=== PATIENT | male | born 1955 | race Caucasian/White ===

== ENCOUNTER 2022-11-23 10:53 | Outpatient (RCR) | payer MEDICARE, BC, SELFPAY | END 2023-03-23 23:59 | disposition home or self-care (01) | PROVIDERS: PCP Family Medicine; Visit Provider Orthopaedic Surgery | DX: M16.12 Unilateral primary osteoarthritis, left hip (principal); M25.552 Pain in left hip; M62.81 Muscle weakness (generalized); R26.9 Unspecified abnormalities of gait and mobility; Z51.89 Encounter for other specified aftercare | CPT/HCPCS: 97110; 97161; 97535 ==

== ENCOUNTER 2022-12-09 09:47 | Outpatient (CLI) | payer MEDICARE, BC, SELFPAY | END 2022-12-09 09:48 | disposition home or self-care (01) | PROVIDERS: PCP Family Medicine; Visit Provider Orthopaedic Surgery | DX: Z01.818 Encounter for other preprocedural examination (principal) | CPT/HCPCS: 36415; 86850; 86900; 86901 ==

== ENCOUNTER 2022-12-11 10:23 | Day surgery (SDC) | payer MEDICARE, BC, SELFPAY ==
[2022-12-11] VITALS (27 sets, daily range): BP systolic 117–174; BP diastolic 69–124; PULSE 66–123; RESP 12–22; TEMP 36.3–37.1; O2SAT 88–100; BMI 26.1
[2022-12-11] MEDS: ACETAMINOPHEN 500 MG TABLET 1000 MG PO ×3 (11:00→23:50)
[2022-12-11] MEDS: CELECOXIB 200 MG CAPSULE PO (11:00)
[2022-12-11] MEDS: OXYCODONE (CR) 10 MG TAB.ER.12H PO (11:00)
[2022-12-11] MEDS: LACTATED RINGERS 1000 ML 1,000 ML 100 ML IV (11:20)
[2022-12-11] MEDS: SODIUM CHLORIDE 0.9 % (FLUSH) 10 ML SYRINGE IVF (11:20)
[2022-12-11] MEDS: fentaNYL 100 MCG/2 ML inj IVP (12:00)
[2022-12-11] MEDS: MIDAZOLAM HCL 1 MG/ML inj IVP (12:00)
--- NOTE | 2022-12-11 12:14 | W.PM.NB ---
Nerve Block Nerve Block Time Seen by Provider: 12:08 Date Seen: 12/11/22 Type of block requested by surgeon for post-operative analgesia: ROULA/LFCN Side: left Time out performed: Yes Verification of patient name: Yes Verification of date of : Yes Site marking: site marked Name of person performing procedure: lonnie Continuous monitoring Was continuous monitoring of O2 sat, B/P, ekg monitor, recorded every 15 minutes?: Yes Procedure Checklist: sterile prep, needles and gloves Ultrasound guided. Images saved: Yes Medications given in 5ml increments after negative aspiration: Ropivicaine %: 0.5 mL: 20 Needle gauge: 20 Decadron (mg): 10 Precedex (mcg): 50 Patient tolerated procedure well: Yes Block Charges Block Charge (with Pro Fee): Other Periph Nerve Block Use of Ultrasound Machine for Block: Yes- US Guidance/pain block
--- NOTE | 2022-12-11 12:24 | SUR.PREOP ---
TIME?OUT:?1200 PT/RN/MDA?VERIFICATION?OF?SURGICAL?SITE,?PROCEDURE,?AND?CONSENT OBTAINED?PRIOR?TO?INVASIVE?PROCEDURE.
--- NOTE | 2022-12-11 12:30 | CRLHL7_ITS ---
For Patients: As a result of the Century Cures Act, medical imaging exams and procedure reports are released immediately into your electronic medical record. You may view this report before your referring provider. If you have questions, please contact your health care provider. INDICATION: Follow up left hip arthroplasty. TECHNIQUE: Two portable intraoperative images of the left hip. Fluoroscopic guidance utilized. FINDINGS: 53 seconds fluoroscopy time utilized intraoperatively. Left hip arthroplasty. The components appear to be adequately aligned. IMPRESSION: 53 seconds fluoroscopy time utilized intraoperatively. Dictated by Andrew Queen MD @ 12/11/2022 4:55:32 PM (Electronically Signed)
[2022-12-11] MEDS: CEFAZOLIN 2 GM INJ IVP (13:12)
--- NOTE | 2022-12-11 14:33 | CRLHL7_ITS ---
For Patients: As a result of the Cures Act, medical imaging exams and procedure reports are released immediately into your electronic medical record. You may view this report before your referring provider. If you have questions, please contact your health care provider. INDICATION: Follow up left hip arthroplasty. TECHNIQUE: AP pelvis and single cross table lateral view of the left hip performed portably and postoperatively. FINDINGS: Left hip arthroplasty. The components are adequately aligned and well seated. Air within the soft tissues related to the surgery. IMPRESSION: Adequate alignment status post left hip arthroplasty. Dictated by Andrew Queen MD @ 12/11/2022 4:56:21 PM (Electronically Signed)
--- NOTE | 2022-12-11 14:34 | PM.ORPRC ---
Procedure Note Date of procedure: 12/11/22 Procedure: PREOPERATIVE DIAGNOSIS: Left hip osteoarthritis POSTOPERATIVE DIAGNOSIS: Left hip osteoarthritis NAME OF OPERATION: Left total hip arthroplasty SURGEON: Miller Becker MD DENTAL ASSISTANT: Renee Mariee PA-C, CATHY Rhodes IMPLANTS: 1. [employer] [place] # 54 sector ingrowth cup 2. 36 x 54 +4 neutral polyethylene 3. Actis # 5 standard collared ingrowth stem 4. 36 + 1.5 ceramic femoral head ANESTHESIA: General ESTIMATED BLOOD LOSS: 700 cc COMPLICATIONS: None SPECIMENS: None DRAINS: None PREOPERATIVE ANTIBIOTICS: Ancef 2 grams INDICATIONS: The patient is a 67-year-old with a longstanding history of severe, unrelenting left hip pain secondary to end-stage left hip osteoarthritis. Despite appropriate nonoperative management, including activity modification, use of an assist device, anti-inflammatories, [id number] pain medication, physical therapy and injections, they continue to have pain and disability. Operative intervention was offered. The risks, benefits and expected outcomes were discussed in detail. These included but were not limited to: Infection, bleeding, injury to blood vessel or nerve, venous thromboembolism. All questions were answered to their satisfaction. Use of an assistant front office manager was necessary throughout the case for patient positioning and safety, soft tissue retraction and closure. PROCEDURE: The patient was placed supine on the [place] table. General anesthesia was administered. The assistant front office manager made sure the patient was properly positioned. The left hip was prepped and draped in the usual sterile fashion. The image intensifier was brought in for a perfect AP pelvis and a perfect double tear drop AP view of each hip which were used for intraoperative templating with our fluoroscopic guide. An oblique incision was made 3 cm distal and 3 cm lateral to the anterior superior iliac spine. The assistant front office manager retracted the soft tissues to protect them. Subcutaneous dissection was taken with electrocautery to the superficial fascia. The fascia was divided in line with the incision. Blunt dissection was carried medially to the tensor fascia naomy and sartorius interval. Deep dissection was carried with electrocautery. The circumflex vessels were cauterized and divided. The capsule was exposed and then divided in a T-fashion, tagged with #1 Ethibond sutures. Retractors were placed in the joint, held by the assistant front office manager. The corkscrew was placed in the femoral head. The neck cut was made in the subcapital region. We made a second neck cut more distal. The napkin ring of bone was removed. The femoral head was removed intact. Acetabular retractors were placed, held by the assistant front office manager. The labrum was sharply debrided. The capsule was released. The 43 mm reamer was used to the true medial wall. We then enlarged in 2 mm increments using the image intensifier for our reamer placement. We impacted the cup which had excellent purchase. We placed the polyethylene. Attention was then turned to the proximal femur. The limb was placed in 140 degrees of external rotation, maximum extension and adduction. A significant amount of time was spent releasing the capsule to allow us to deliver the femur into the wound and complete the femoral side safely. Retractors were held by the assistant front office manager throughout the femoral preparation. The sample box maker and canal finder were used. Broaches were used to a stable size. The calcar reamer was used. Trial components were placed. The hip was reduced and was found to be stable with appropriate soft tissue tension. Length and offset had been nicely restored using the image intensifier and our fluoroscopic guide. Trial components were removed. The stem was impacted. We placed the femoral head. Again, the hip was reduced and was found to be stable with appropriate soft tissue tension. Length and offset had been nicely restored. The assistant front office manager did a three minute dilute Betadine solution soak. The assistant front office manager irrigated the wound with 3 liters of normal saline via pulse lavage. The assistant front office manager repaired the anterior capsule with a #1 Vicryl and our previously placed Ethibond sutures. The assistant front office manager closed the fascia over the tensor fascia naomy with a #1 PDO Stratafix, subcutaneous tissues with 2-0 Vicryl, skin with a running 3-0 Stratafix and glue. A dry dressing was applied by the assistant front office manager. Sponge and needle counts were correct x 2. The patient tolerated the procedure well; there were no apparent complications. They were awakened and extubated in the operating room, sent to the Post-Anesthesia Care Unit in satisfactory condition. PLAN: 1. The patient will be mobilized with physical therapy, weight-bearing as tolerates 2. Xarelto x 5 days then aspirin x 30 days will be used for DVT prophylaxis 3. The patient will be discharged once medically appropriate
--- NOTE | 2022-12-11 15:22 | W.ANESCHARGE ---
Anesthesia Charges Start Date/Time Anesthesia Start Date: 12/11/22 Anesthesia Start Time: 12:50 Stop Date/Time Anesthesia Stop Date: 12/11/22 Anesthesia Stop Time: 15:25
[2022-12-11] MEDS: fentaNYL 100 MCG/2 ML inj 50 MCG IVP (15:51)
[2022-12-11] MEDS: LACTATED RINGERS 1000 ML 1,000 ML 75 ML IV (16:15)
--- NOTE | 2022-12-11 16:16 | PC.NURSE ---
DISCUSSED ELEVATED BP WITH RUBEN HOLLAND AND HE AUTHORIZED PATIENT TO BE DISCHARGED. PATIENT DID NOT TAKE THIS AM BLOOD PRESSURE MEDICATIONS. PATIENT MEETS BLANE SCORE TO BE DISCHARGED. REPORTED TO MED SURG NURSE
[2022-12-11] MEDS: HYDROmorphone 0.5 mg/0.5 ml inj IVP (16:57)
[2022-12-11] MEDS: OXYCODONE 5 MG TABLET PO (18:11)
[2022-12-11] MEDS: 0.9 % SODIUM CHLORIDE 500 ML IV (19:42)
[2022-12-11] MEDS: lisinopriL 10 MG TABLET PO (21:04)
[2022-12-11] MEDS: buPROPion HCL SR 150 MG TAB PO (21:04)
[2022-12-11] MEDS: SENNOSIDES 1 TAB TABLET 2 TAB PO (21:04)
[2022-12-11] MEDS: CEFAZOLIN 2 GM in 0.9 % SODIUM CHLORIDE Mini-bag 100 ML IVPB (21:05)
[2022-12-11] MEDS: 0.9 % SODIUM CHLORIDE 500 ML 500 ML IV (22:00)
--- NOTE | 2022-12-11 23:15 | P.IMCN_ITS ---
Date of Consult Patient: [place] Patient Consult date: 12/11/22 Requesting Physician: Orthopedics Primary Care Provider: Dave Devi MD Consult Narrative Reason for consult: Postop care HTN, COPD, HLD Narrative: Dashawn Knapp is a 67 year old man who successfully underwent a left total hip arthroplasty today. Estimated blood loss 700 mL. Postop sinus tachycardia and decreased urine output. Responded well to IV fluid boluses. Review of Systems Status of ROS: Reports: 10 or more systems reviewed and unremarkable except as noted in History and below Narrative: Has not taken his antihypertensive medication for 2 days. Denies angina, anginal equivalent, syncope, near syncope, nausea, vomiting, diaphoresis, dyspnea at rest, paroxysmal nocturnal dyspnea, orthopnea. Acknowledges baseline dyspnea with exertion. Uses his rescue inhaler periodically for dyspnea or cough. No recent fever, rigors, diaphoresis. No recent illness. No recent travel. No recent trauma. No recent injury. Bowel and bladder function are satisfactory. Denies focal motor neurologic changes or concerns. Has been sleeping in a recliner chair for several months due to pain in hip that is worsened with laying supine. [facility] Medical History Hyperlipidemia ?E78.5 - Hyperlipidemia, unspecified (ICD-10) Anxiety and depression ?F41.9 - Anxiety disorder, unspecified (ICD-10) ?F32.A - Depression, unspecified (ICD-10) History of nephrolithotomy with removal of calculi ?Z98.890 - Other specified postprocedural states (ICD-10) ?Z87.442 - Personal history of urinary calculi (ICD-10) Tobacco dependence ?F17.200 - Nicotine dependence, unspecified, uncomplicated (ICD-10) Asthma with COPD ?J44.9 - Chronic obstructive pulmonary disease, unspecified (ICD-10) Closed right ankle fracture ?S82.891A - Other fracture of right lower leg, initial encounter for closed fracture (ICD-10) Closed left ankle fracture ?S82.892A - Other fracture of left lower leg, initial encounter for closed fracture (ICD-10) Kidney stones ?N20.0 - Calculus of kidney (ICD-10) High blood pressure ?I10 - Essential (primary) hypertension (ICD-10) Surgical History (Updated 12/11/22 @ 23:15 by Rafael Alegria MD) History of ankle surgery ?Z98.890 - Other specified postprocedural states (ICD-10) History of cystoscopy ?Z98.890 - Other specified postprocedural states (ICD-10) Status post colonoscopy with polypectomy ?Z98.890 - Other specified postprocedural states (ICD-10) Family History Father Aortic aneurysm Mother Stroke Brother Leukemia Social History Highest level of school completed/degree received: Bachelor's degree Smoking Status: Former smoker What tobacco products do you use: cigarettes Smoking packs per day: 1.5 Smoking cigarettes per day: 30.0 Years smoked: 35 Smoking pack-years: 52.50 Smoking quit date/years: <= 15 years ago Do you use any of these nicotine containing products: None Second hand tobacco smoke exposure: No How often do you have a drink containing alcohol: 2-4 times a month Alcohol type: wine How many standard drinks containing alcohol do you have on a typical day: 1 or 2 How often do you have six or more drinks on one occasion: Never AUDIT-C Alcohol total score: 2 Non-prescribed substance use: denies use Caffeine: Yes (coffee, 3-4 cups/day) service: No Meds Home Medications and Allergies Home Medications Medication Instructions Recorded Confirmed Type albuterol sulfate 90 mcg/actuation 2 puff inhalation QID PRN dyspnea 11/05/22 12/11/22 History aerosol inhaler atorvastatin 10 mg tablet 10 mg PO DAILY 11/05/22 12/11/22 History bupropion HCl 150 mg tablet,12 hr 150 mg PO BID 11/05/22 12/11/22 History sustained-release lisinopril 20 mg tablet 20 mg PO DAILY 11/05/22 12/11/22 History cyclobenzaprine 10 mg tablet 10 mg PO Q8H PRN 12/07/22 12/11/22 History fluticasone propionate 50 1 spray intranasal BID 12/07/22 12/11/22 History mcg/actuation nasal spray,suspension (24 Hour Allergy Relief) meloxicam 15 mg tablet 15 mg PO DAILY 12/07/22 12/11/22 History multivitamin (Daily Multi-Vitamin 1 tab PO DAILY 12/07/22 12/11/22 History tablet) Allergies Allergy/AdvReac Type Severity Reaction Status Date / Time hayfever Allergy Uncoded 11/21/22 13:40 Exam Narrative: Exam Narrative: Sitting comfortably in recliner chair at side of bed. Vision and hearing are grossly normal. Alert, oriented to self, place, time, situation. Friendly, cooperative, articulate. Mood and affect are congruent. Neck is supple. Midline trachea. No JVD or hepatojugular reflux. No carotid bruits. Lungs are clear to auscultation, without wheezing, rhonchi, or rales. Heart tones with regular rhythm, normal S1, S2. No murmur, gallop, or rub. Abdomen with active bowel sounds, soft, nontender. Extremities without edema. Moves all 4 extremities. Const: Vital Signs, click to edit/add: Vital Signs - 24 hr 12/11/22 11:31 12/11/22 12:00 12/11/22 12:05 Temperature 98.5 F Pulse Rate 88 75 66 Pulse Rate [Right Pulse Oximeter] Respiratory Rate 16 16 16 Blood Pressure 137/89 159/124 H 141/108 H Blood Pressure [Le ft Arm] Pulse Oximetry 97 97 93 Oxygen Delivery Me thod Room Air Nasal Cannula Nasal Cannula Oxygen Flow Rate 2 2 12/11/22 12:10 12/11/22 12:20 12/11/22 12:30 Temperature Pulse Rate 70 81 73 Pulse Rate [Right Pulse Oximeter] Respiratory Rate 16 16 16 Blood Pressure 128/101 H 120/83 124/77 Blood Pressure [Le ft Arm] Pulse Oximetry 95 96 96 Oxygen Delivery Me thod Nasal Cannula Nasal Cannula Nasal Cannula Oxygen Flow Rate 2 2 2 12/11/22 12:40 12/11/22 15:21 12/11/22 15:25 Temperature 98 F Pulse Rate 71 86 88 Pulse Rate [Right Pulse Oximeter] Respiratory Rate 16 12 12 Blood Pressure 117/83 130/117 H 129/115 H Blood Pressure [Le ft Arm] Pulse Oximetry 96 97 99 Oxygen Delivery Me thod Nasal Cannula OxyMask Oxygen Flow Rate 2 6 12/11/22 15:30 12/11/22 15:35 12/11/22 15:40 Temperature Pulse Rate 89 101 H 101 H Pulse Rate [Right Pulse Oximeter] Respiratory Rate 12 12 12 Blood Pressure 152/118 H 174/107 H 165/97 H Blood Pressure [Le ft Arm] Pulse Oximetry 100 100 95 Oxygen Delivery Me thod Room Air Oxygen Flow Rate 12/11/22 15:45 12/11/22 15:50 12/11/22 15:55 Temperature 97.6 F Pulse Rate 102 H 105 H 103 H Pulse Rate [Right Pulse Oximeter] Respiratory Rate 16 12 16 Blood Pressure 152/90 H 152/112 H 142/114 H Blood Pressure [Le ft Arm] Pulse Oximetry 94 93 93 Oxygen Delivery Me thod Nasal Cannula Nasal Cannula Oxygen Flow Rate 2 2 12/11/22 16:00 12/11/22 16:15 12/11/22 16:30 Temperature 98.8 F 97.4 F L Pulse Rate 90 Pulse Rate [Right Pulse Oximeter] 97 97 Respiratory Rate 16 15 15 Blood Pressure 164/119 H Blood Pressure [Le ft Arm] 164/101 H 135/106 H Pulse Oximetry 95 91 91 Oxygen Delivery Me thod Room Air Room Air Room Air Oxygen Flow Rate 12/11/22 16:48 Temperature Pulse Rate 97 Pulse Rate [Right Pulse Oximeter] Respiratory Rate 15 Blood Pressure Blood Pressure [Le ft Arm] 172/97 H Pulse Oximetry Oxygen Delivery Me thod Room Air Oxygen Flow Rate Documenting provider has reviewed patient's vital signs: yes Assessment and Plan Assessment and plan (1) Osteoarthritis of left hip: Status: Acute (2) Status post total hip replacement, left: Status: Acute (3) Anxiety and depression: Status: Acute (4) High blood pressure: Status: Acute (5) Asthma with COPD: Status: Acute (6) Hyperlipidemia: Status: Acute Plan 1. Reviewed impression with patient. Answered his questions. 2. Agree with perioperative IV antibiotic prophylaxis. 3. Agree with postoperative venous thromboembolism prophylaxis. 4. Continue with supportive medications
--- NOTE | 2022-12-11 23:48 | PC.NURSE ---
Nursing Care Hours: [id number] Pt this shift arrived from PACU with 4/10 pain, alert and oriented but fatigued. Reported to be HTN and HR in 90's. Over 6 hour post op VS, HR steadily increased and remains around 105-125 bpm. Pain controlled per eMAR, pt stating I haven't felt this good in a long time. SpO2 dips to 88% while pt is rested or asleep. 0.5L O2 given at rest. No nausea. Up to chair for meal. Attempt to void x1 with no output. Pt mouth remains dry, and HR tachy. 500 ml bolus given and symptoms unchanged. Verbal order for another 1 time 500 ml bolus, still no change in symptoms and no void. Abdomen distended but non tender. BS active. Bandage CDI, bilat pedal pulses present.
[2022-12-12 03:00] VITALS: BP 117/78; PULSE 107; RESP 18; TEMP 36.8; O2SAT 96
[2022-12-12] MEDS: CEFAZOLIN 2 GM in 0.9 % SODIUM CHLORIDE Mini-bag 100 ML IVPB (05:07)
[2022-12-12] MEDS: ACETAMINOPHEN 500 MG TABLET 1000 MG PO (05:49)
[2022-12-12 06:00] VITALS: BP 117/78; BP 124/80; BP 128/90
[2022-12-12 06:45] LABS: Basophils Percent Auto 0.1 % (0.0-3.0); Hematocrit 31.2 % (37.0-53.0); Hemoglobin* 10.6 gm/dL (13.5-17.5); Immature Granulocytes Pct Auto 0.2 %; Lymphocytes Percent Auto 4.2 % (20-44); Mean Corpuscular HGB Conc 34 gm/dL (32-36); Mean Corpuscular Hemoglobin 34 pg (26-34); Mean Corpuscular Volume 100 fL (80-100); Neutrophils Percent Auto 85.5 % (42.0-72.0); Platelet Count* 282 K/uL (140-440); RDW Coefficient of Variation % 11.8 % (11.5-15.5); Red Blood Count 3.11 m/uL (4.30-5.90); White Blood Count* 13.47 K/uL (4.50-11.00)
--- NOTE | 2022-12-12 06:57 | PC.NURSE ---
Alert and oriented x 4. Left hip dressing clean, dry and intact. CMS to left lower extremity intact. Patient transfers with stand by assist, ambulates with walker and gait belt. Up x 3 to bathroom, voiding well. IV saline locked. Bowel sounds active x 4 quadrants. Lung sounds clear, denies shortness of breath or cough.
[2022-12-12 07:00] VITALS: BP 127/74; PULSE 116; RESP 20; TEMP 37.2; O2SAT 97
[2022-12-12 07:09] LABS: Slide Review Reflex No
[2022-12-12 07:13] LABS: Potassium* 4.3 mmol/L (3.6-5.1); Sodium* 138 mmol/L (135-149)
[2022-12-12 07:16] LABS: Blood Urea Nitrogen* 23 mg/dL (7-30); Creatinine* 1.1 mg/dL (0.5-1.5); Est. Creatinine Clearance* 68.21; Estimated Glomerular Filt Rate 74 ml/min
[2022-12-12] MEDS: ATORVASTATIN 10 MG TABLET PO (08:21)
[2022-12-12] MEDS: RIVAROXABAN 10 MG TABLET PO (08:21)
[2022-12-12] MEDS: lisinopriL 20 MG TABLET PO (08:21)
[2022-12-12] MEDS: buPROPion HCL SR 150 MG TAB PO (08:21)
[2022-12-12] MEDS: OXYCODONE 5 MG TABLET PO (08:22)
[2022-12-12] MEDS: SENNOSIDES 1 TAB TABLET 2 TAB PO (08:22)
--- NOTE | 2022-12-12 08:24 | PM.ORPN ---
Subjective Subjective Time Seen by Provider: 07:30 Date Seen: 12/12/22 Principal diagnosis: Status post left hip replacement Interval history: Dashawn is comfortable this morning. He slept well. He has had tachycardia. This has been evaluated by hospitalist. He has also had Postop urinary retention that has resolved. he plans to discharge to home today. Ortho Exam Narrative Exam Narrative: Alert and oriented x3. Patient is in no acute distress. Converses without labored breathing. Hearing is grossly intact. Ambulates with a Walker. Examination of left lower extremity shows the dressing is intact. No erythema or warmth or sign of infection. Mild edema. Bilateral calves are soft and nontender. CMS is intact left lower extremity. Good quad strength 5/5. Const Vital Signs, click to edit/add: Vital Signs - 24 hr 12/11/22 11:31 12/11/22 12:00 12/11/22 12:05 Temperature 98.5 F Pulse Rate 88 75 66 Pulse Rate [Right Pulse Oximeter] Respiratory Rate 16 16 16 Blood Pressure 137/89 159/124 H 141/108 H Blood Pressure [Left Arm] Blood Pressure [orthostatic lying Right Arm] Blood Pressure [orthostatic sitting Right Arm] Blood Pressure [orthostatic standing Right Arm] Pulse Oximetry 97 97 93 Oxygen Delivery Method Room Air Nasal Cannula Nasal Cannula Oxygen Flow Rate 2 2 12/11/22 12:10 12/11/22 12:20 12/11/22 12:30 Temperature Pulse Rate 70 81 73 Pulse Rate [Right Pulse Oximeter] Respiratory Rate 16 16 16 Blood Pressure 128/101 H 120/83 124/77 Blood Pressure [Left Arm] Blood Pressure [orthostatic lying Right Arm] Blood Pressure [orthostatic sitting Right Arm] Blood Pressure [orthostatic standing Right Arm] Pulse Oximetry 95 96 96 Oxygen Delivery Method Nasal Cannula Nasal Cannula Nasal Cannula Oxygen Flow Rate 2 2 2 12/11/22 12:40 12/11/22 15:21 12/11/22 15:25 Temperature 98 F Pulse Rate 71 86 88 Pulse Rate [Right Pulse Oximeter] Respiratory Rate 16 12 12 Blood Pressure 117/83 130/117 H 129/115 H Blood Pressure [Left Arm] Blood Pressure [orthostatic lying Right Arm] Blood Pressure [orthostatic sitting Right Arm] Blood Pressure [orthostatic standing Right Arm] Pulse Oximetry 96 97 99 Oxygen Delivery Method Nasal Cannula OxyMask Oxygen Flow Rate 2 6 12/11/22 15:30 12/11/22 15:35 12/11/22 15:40 Temperature Pulse Rate 89 101 H 101 H Pulse Rate [Right Pulse Oximeter] Respiratory Rate 12 12 12 Blood Pressure 152/118 H 174/107 H 165/97 H Blood Pressure [Left Arm] Blood Pressure [orthostatic lying Right Arm] Blood Pressure [orthostatic sitting Right Arm] Blood Pressure [orthostatic standing Right Arm] Pulse Oximetry 100 100 95 Oxygen Delivery Method Room Air Oxygen Flow Rate 12/11/22 15:45 12/11/22 15:50 12/11/22 15:55 Temperature 97.6 F Pulse Rate 102 H 105 H 103 H Pulse Rate [Right Pulse Oximeter] Respiratory Rate 16 12 16 Blood Pressure 152/90 H 152/112 H 142/114 H Blood Pressure [Left Arm] Blood Pressure [orthostatic lying Right Arm] Blood Pressure [orthostatic sitting Right Arm] Blood Pressure [orthostatic standing Right Arm] Pulse Oximetry 94 93 93 Oxygen Delivery Method Nasal Cannula Nasal Cannula Oxygen Flow Rate 2 2 12/11/22 16:00 12/11/22 16:15 12/11/22 16:30 Temperature 98.8 F 97.4 F L Pulse Rate 90 Pulse Rate [Right Pulse Oximeter] 97 97 Respiratory Rate 16 15 15 Blood Pressure 164/119 H Blood Pressure [Left Arm] 164/101 H 135/106 H Blood Pressure [orthostatic lying Right Arm] Blood Pressure [orthostatic sitting Right Arm] Blood Pressure [orthostatic standing Right Arm] Pulse Oximetry 95 91 91 Oxygen Delivery Method Room Air Room Air Room Air Oxygen Flow Rate 12/11/22 16:45 12/11/22 16:48 12/11/22 17:00 Temperature Pulse Rate 97 Pulse Rate [Right Pulse Oximeter] 105 H 106 H Respiratory Rate 18 15 18 Blood Pressure Blood Pressure [Left Arm] 146/96 H 172/97 H 142/94 H Blood Pressure [orthostatic lying Right Arm] Blood Pressure [orthostatic sitting Right Arm] Blood Pressure [orthostatic standing Right Arm] Pulse Oximetry 91 88 Oxygen Delivery Method Room Air Room Air Room Air Oxygen Flow Rate 12/11/22 17:30 12/11/22 18:00 12/11/22 19:00 Temperature 97.8 F Pulse Rate Pulse Rate [Right Pulse Oximeter] 110 H 119 H 123 H Respiratory Rate 18 18 14 Blood Pressure Blood Pressure [Left Arm] 131/101 H 137/98 H 144/92 H Blood Pressure [orthostatic lying Right Arm] Blood Pressure [orthostatic sitting Right Arm] Blood Pressure [orthostatic standing Right Arm] Pulse Oximetry 94 93 93 Oxygen Delivery Method Room Air Room Air Room Air Oxygen Flow Rate 12/11/22 20:00 12/11/22 21:00 12/11/22 23:00 Temperature Pulse Rate Pulse Rate [Right Pulse Oximeter] 115 H 120 H 118 H Respiratory Rate Blood Pressure Blood Pressure [Left Arm] 147/69 H Blood Pressure [orthostatic lying Right Arm] Blood Pressure [orthostatic sitting Right Arm] Blood Pressure [orthostatic standing Right Arm] Pulse Oximetry 92 94 Oxygen Delivery Method Room Air Room Air Oxygen Flow Rate 12/11/22 23:00 12/12/22 03:00 12/12/22 06:00 Temperature 97.8 F 98.2 F Pulse Rate Pulse Rate [Right Pulse Oximeter] 118 H 107 H Respiratory Rate 22 18 Blood Pressure Blood Pressure [Left Arm] 127/81 117/78 Blood Pressure [orthostatic lying Right Arm] 117/78 Blood Pressure [orthostatic sitting Right Arm] 128/90 H Blood Pressure [orthostatic standing Right Arm] 124/80 Pulse Oximetry 94 96 Oxygen Delivery Method Room Air Room Air Oxygen Flow Rate 12/12/22 07:00 Temperature 98.9 F Pulse Rate Pulse Rate [Right Pulse Oximeter] 116 H Respiratory Rate 20 Blood Pressure Blood Pressure [Left Arm] 127/74 Blood Pressure [orthostatic lying Right Arm] Blood Pressure [orthostatic sitting Right Arm] Blood Pressure [orthostatic standing Right Arm] Pulse Oximetry 97 Oxygen Delivery Method Room Air Oxygen Flow Rate Assessment and Plan Assessment and plan (1) Status post total hip replacement, left: Problem details: 12/11/2022 Status: Acute Assessment and Plan: Plan for discharge is today to home if they meet discharge criteria. DVT prophylaxis includes Xarelto 10 mg daily for total of 5 days, then aspirin 81 mg twice daily for 30 days, Thom stockings x1 month may remove for 1 hr per day, frequent ambulation Remove dressing 1 week. Observe wound and phone Orthopedics with any questions or concerns Use Ice on operative hip unrestricted. Return to clinic in 1 week with PA for a wound check Return to clinic in [address] Becker Minimize narcotic use. Wean off and discontinue soon as possible. Activities as tolerated. No strenuous activity. Attend outpt PT (2) Anxiety and depression: Status: Acute (3) High blood pressure: Status: Acute (4) Asthma with COPD: Status: Acute (5) Hyperlipidemia: Status: Acute
[2022-12-12 10:27] VITALS: BP 164/119; PULSE 97; RESP 20; TEMP 37.2
== END 2022-12-12 10:57 | disposition home or self-care (01) ==
LOC: OR 10:23 → MEDSURG 15:28
PROVIDERS: PCP Family Medicine; Visit Provider Orthopaedic Surgery
PROC: (CPT 27130; principal; 2022-12-11 12:30)
DX: M16.12 Unilateral primary osteoarthritis, left hip (principal); R00.0 Tachycardia, unspecified; G89.18 Other acute postprocedural pain; I10 Essential (primary) hypertension; J44.9 Chronic obstructive pulmonary disease, unspecified; F41.9 Anxiety disorder, unspecified; F32.A Depression, unspecified; R33.9 Retention of urine, unspecified
CPT/HCPCS: 27130; 01214; 36415; 64450; 73501; 76942; 82565; 84132; 84295; 84520; 85025; 97110; 97116; 97161; 97165; A9270; C1776; J0330; J0690; J1100; J1170; J2250; J2405; J2704; J2710; J2795; J3010; J3490; J7120; S0106

== ENCOUNTER 2025-02-13 11:32 | Emergency (ER) | payer MEDICARE, BC, SELFPAY ==
[2025-02-13 11:47] VITALS: BP 139/84; PULSE 84; RESP 18; TEMP 36.3; O2SAT 96; BMI 24.1
--- NOTE | 2025-02-13 12:21 | CRLHL7_ITS ---
For Patients: As a result of the Cures Act, medical imaging exams and procedure reports are released immediately into your electronic medical record. You may view this report before your referring provider. If you have questions, please contact your health care provider. INDICATION: Back pain TECHNIQUE: 2-view lumbar spine. COMPARISON: none FINDINGS: Disc space narrowing and spurring L3 through S1. No fracture. No spondylolisthesis. Possible renal stones. IMPRESSION: No fracture. Possible nephrolithiasis. Dictated by Edil Darling MD @ 02/13/2025 1:18:36 PM (Electronically Signed)
--- OUTSIDE RECORDS SUMMARY | 2025-02-13 12:34 | XMS_ITS | Clinical Summary ---
Author Organization [facility] Address [address] [place] [address] Care Team Providers Care Communications Lead Name Role Phone Michelle Mckenzie DO Primary Care Provide r Allergies Active Allergy Reactions Criticality Noted Date Comments Varenicline Behavioral Disturbances High 04/25/2009 Homeopathic Products Runny Nose High 10/14/2006 Pollen Extracts *Unknown Low 05/02/2019 Nasal congestion, itchy eyes. Medications ibuprofen (ADVIL; MOTRIN) 200 mg tablet Take 1 tablet by mouth 4 times daily if needed. 0 6 Active multivitamin (MULTIPLE VITAMINS) tablet Take 1 tablet by mouth once daily. 0 6 Active fluticasone (50 mcg per actuation) nasal solution (FLONASE)Indicat ions:Seasonal allergic rhinitis due to pollen Inhale 1 [place] into both nostrils 2 times daily. 1 Bottle 2 9 Active triamcinolone (ARISTOCORT; KENALOG) 0.1 % creamIndications :Chronic eczema Apply topically to affected area(s) three times daily. 80 g 5 Active albuterol HFA (PRO-AIR; VENTOLIN; PROVENTIL) 90 mcg/actuation inhalerIndicatio ns:Asthma with COPD (HC) Inhale 2 Puffs by mouth 4 times daily if needed for Shortness of Breath 1st choice. 3 Each 3 5 Active lisinopriL (PRINIVIL; ZESTRIL) 20 mg tabletIndication s:Essential hypertension with goal blood pressure less than 140/90 Take 1 Tablet (20 mg) by mouth once daily. 90 Tablet 3 5 Active buPROPion (WELLBUTRIN SR) 150 mg Sustained-Releas e tabletIndication s:History of tobacco use disorder Take 1 Tablet (150 mg) by mouth two times daily. 180 Tablet 3 5 Active atorvastatin (LIPITOR) 10 mg tabletIndication s:Essential hypertension with goal blood pressure less than 140/90 Take 1 Tablet (10 mg) by mouth once daily. 90 Tablet 3 5 Active albuterol HFA (PRO-AIR; VENTOLIN; PROVENTIL) 90 mcg/actuation inhalerIndicatio ns:Mild intermittent asthma without complication (HC) Inhale 2 Puffs by mouth 4 times daily if needed for Shortness of Breath 1st choice. 3 Each 3 4 01/20/20 25 Discontin ued(Reord er (E-cancel not sent)) buPROPion 150 mg Sustained-Releas e tabletIndication s:Tobacco use disorder TAKE 1 TABLET(150 MG) BY MOUTH TWICE DAILY 180 Tablet 5 01/20/20 25 Discontin ued(Reord er (E-cancel not sent)) lisinopriL 20 mg tabletIndication s:Essential hypertension with goal blood pressure less than 140/90 Take 1 Tablet (20 mg) by mouth once daily. 90 Tablet 5 01/20/20 25 Discontin ued(Reord er (E-cancel not sent)) atorvastatin (LIPITOR) 10 mg tabletIndication s:Essential hypertension with goal blood pressure less than 140/90 TAKE 1 TABLET(10 MG) BY MOUTH EVERY DAY 30 Tablet 5 01/20/20 25 Discontin ued(Reord er (E-cancel not sent)) atorvastatin (LIPITOR) 10 mg tabletIndication s:Essential hypertension with goal blood pressure less than 140/90 Take 1 Tablet (10 mg) by mouth once daily. 90 Tablet 3 5 02/05/20 25 Discontin ued(*Avai lability/ Formulary change/Co st of medicatio n) Active Problems Problem Noted Date Diagnosed Date Status post total hip replacement, left 01/20/20 25 History of tobacco use disorder 01/19/2025 Overview (01/19/2025): Smoked for 35 years, quit 06/03/2013 Essential hypertension with goal blood pressure less than 140/90 01/19/2025 Asthma with COPD 01/18/2024 Hyperlipidemia 05/03/2019 Nephrolithiasis 03/22/2015 Colon polyp, hyperplastic 07/31/2014 Overview (01/19/2025): Due for repeat 02/2026 Chronic rhinitis 10/14/2006 Resolved Problems Problem Noted Date Diagnosed Date Resolved Date Primary hypertension 05/03/2019 025 Renal stone 03/29/2015 01/19/2025 Personal history of colonic polyps 11/29/2014 03/22/2015 Personal history of tobacco use, presenting hazards to health 10/14/2006 03/22/2015 Encounters Date Type Department Care Team Description 02/04/2025 Telephone [facility] [address] [place] [address] Michelle Mckenzie DO Refill Request (Atorvastatin ) 01/31/2025 Refill [facility] [address] [place] [address] Daev Devi MD Refill Request (Atorvastatin) 01/19/2025 11:15 AM CDT Office Visit [address] [address] Michelle Mckenzie DO Establish Care (No concerns); Physical 01/19/2025 Travel 01/15/2025 Travel 01/01/2025 Refill [facility] [address] [place] [address] Dave Devi MD Refill Request (Atorvastatin) 12/24/2024 2:00 PM CDT - 12/24/2024 11:59 PM CDT Hospital Encounter [facility] [address] [place] [address] Dave Devi MD Encounter for screening for lung cancer; Former cigarette smoker 12/24/2024 Travel from Last 3 Months Immunizations Immunization Administration Dates Next Due COVID-19 VACCINE COMIRNATY (PFIZER-BIONTECH 30MCG/0.3ML) 12YO+ PFS 04/19/2023 COVID-19 vaccine (Pfizer-Bio NTech 30mcg/0.3mL) 12YO+ ZBIGNIEW-SUCROSE PF, MDV 11/17/2021 COVID-19 vaccine (Pfizer-Bio NTech 30mcg/0.3mL) PF, MDV 05/16/2021,09/28/2020,09/07/2020 Hepatitis A (Adult) 12/20/2014,01/06/2004 Hepatitis B (Adult) 07/21/2004,02/17/2004,2003 INFLUENZA, IIV3 PF (AGE >= 6 MO) 04/28/2013,04/25 Influenza, IIV3 (Age >=3 years) 04/20/20 14,04/29/2013,05/21/2011,04/17 Influenza, IIV4 04/18/2021, 0,2019,07/30,06/08/2016,03/22/2015 Influenza, Inactivated AIIV4 (Age 65+ Years) Preserv Free 04/19/2023 Influenza, Inactivated IIV3 (Age 65+ Years) Preserv Free 06/26/2024 Pneumococcal Conj 20-valent (Prevnar 20) 11/17/2021 Pneumococcal conj 13-Valent (Prevnar 13) 01/04/2017 RSV, Bivalent Vaccine Recons tituted (Abrysvo 120MCG/0.5mL) 04/19/2023 Td (Age >=7 Years) 05/13/2003 Tdap 05/02/2019,04/29/2013,04/28/2013 Zoster (Shingrix-RZV, recombinant) 03/08/2021, Family History Medical History Relation Name Comments Lymphoma Brother 1 No Known Problems Brother 2 Heart Disease Father AORTIC ANEURYS M Dementia Maternal Aunt Lewy Body Cancer-colon Maternal Grandfather Grandpa Aaron Heart Disease Maternal Grandmother Diabetes Mother Chivo Knapp late onset Stroke Mother Chivo Knapp Psychiatric illness Paternal Grandmother Anesthesia Problem No Family History Clotting disorder No Family History Relation Name Status Comments Brother 1 Alive Brother 2 Alive Father (Age 59) Maternal Aunt Alive Maternal Grandfather James Aaron Maternal Grandmother Mother Chivo Knapp (Age 84) Paternal Grandfather Paternal Grandmother Social History Tobacco Use Types Packs/Day Years Used Date Smoking Tobacco: Former Cigarettes 1 29 1 08/05/1983 - 06/04/2013 Passive Smoke Exposure: Past Smokeless Tobacco: Never Tobacco Cessation:Counseling Given: Not Answered Passive Exposure Comments:mom/ dad smoked in child muniz life Alcohol Use Standard Drinks/Week Comments Yes 0 (1 standard drink = 0.6 oz pure alcohol) occasionally wine, beer or liquor PHQ-2 Answer Date Recorded PHQ-2 TOTAL SCORE 0 01/19/2025 Social Connections Answer Date Recorded Do you often feel lonely or isolated from those around you? 0 01/15/2025 Financial Resource Strain Answer Date R ecorded Difficulty of Paying Living Expenses 3 01/15/2025 Difficulty of Paying Living Expenses Not on file 01/15/2025 Food Insecurity Answer Date Recorded Do you worry your food will run out before you are able to buy more? 1 01/15/2025 Transportation Needs Answer Date Record ed Does lack of transportation keep you from medica l appointments? 1 01/15/2025 Does lack of transportation keep you from work, meetings or getting things that you need? 1 01/15/2025 Housing Stability Answer Date Recorded What is your housing situation today? 1 01/15/2025 Utilities Answer Date Recorded Do you have trouble paying f or utilities (for example, heat, electricity, water, phone)? 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 on file Not on file Not on file Obstetrics History Last Filed Vital Signs Vital Sign Reading Time Taken Comments Blood Pressure 110/72 01/19/2025 11:15 AM CDT Pulse 87 01/19/2025 11:52 AM CDT Temperature 36.9 C (98.4 F) 11/26/2022 1:11 PM CDT Respiratory Rate 20 01/19/2025 11:15 AM CDT Oxygen Saturation 96% 01/19/2025 11:15 AM CDT Inhaled Oxygen Concentration - - Weight 79.5 kg (175 lb 3.2 oz) 01/19/2025 11:15 AM CDT Height 182.9 cm (6') 01/19/2025 11:15 AM CDT Body Mass Index 23.76 01/19/2025 11:15 AM CDT Plan of Treatment Health Maintenance Due Date Last Done Comments COVID-19 vaccine series () 12/24/2024 06/26/2024, 04/19/2023, 11/17/2021, Additional history exists Influenza Vaccine (#1) 2025 , 04/19/2023, 04/18/2021, Additional history exists Low Dose CT (for lung CA) ag e 50-80 12/24/2025 12/24/2024, 12/24/2023, 12/05/2022, Additional history exists BMI (ht and wt on same day) for age 18+ 01/19/2026 01/19/2025, 01/16/2024, 11/26/2022, Additional history exists Depression screening for age 12+ 01/19/2026 01/19/2025, 01/16/2024, 11/26/2022, Additional history exists Medicare Wellness for age 65+ 01/20/2026, 01/16/2024, 11/26/2022, Additional history exists Colonoscopy through age 75 03/16/202603/16, 11/24/2014, 11/24/2014, Additional history exists Tetanus booster 05/02/2029 05/02/2019, 04/24, 04/29/2013, Additional history exists Lipids for age 45-75 01/19/2030 01/19/2025, 01/16/2024, 11/26/2022, Additional history exists Hepatitis B series for 19+ Completed 07/21, 02/17/2004, 01/06/2004 Hepatitis C screening for ag e 18-79 Completed 12/16/2014 Zoster (shingles) series for age 50+ Completed 03/08/2021, 10/13/2020 Pneumococcal series for age 50+ Completed 2, 01/04/2017 RSV vaccine for adults or Completed 04/19/2023 AAA screening age 65-74 Completed 01/22/20 24, 08/12/2018, 02/16/2015 Medical Devices Implanted Type Area Ring Stamper Device Identifier Shelf Expiration Date Model / Serial / Lot Stent Uret [id number] Percuflex Hydroplus - [id number] Implanted:Qty: 1 on 02/25/2015 by Seferino Miller MD at [facility] Right: [facility] 10/18/2017 [id number] / / [id number] Procedures Procedure Name Priority Date/Time Associated Diagnosis Comments DIFFERENTIAL Add On 01/19/2025 12:32 PM CDT Macrocytic anemia RETICULOCYTES Add On 01/19/2025 12:32 PM CDT Macrocytic anemia BASIC METABOLIC PANEL Routine 01/19/2025 12:32 PM CDT Screening for condition Medication management LIPID PANEL Routine 01/19/2025 12:32 PM CDT Essential hypertension with goal blood pressure less than 140/90 Screening cholesterol level PSA TOTAL Routine 01/19/2025 12:32 PM CDT Prostate cancer screening CBC W PLT NO DIFF Routine 01/19/2025 12: 32 PM CDT Screening for condition Medication management CT CHEST SCREENING LOW DOSE WO CONTRAST Routine 12/24/2024 2:20 PM CDT Encounter for screening for lung cancer Former cigarette smoker US ABD AORTA SCREENING Routine 01/22/2024 11:14 AM CDT Screening for AAA (aortic abdominal aneurysm) COLONOSCOPY 03/16/2021 10:31 AM CDT ANTI HCV Routine 12/16/2014 8:11 AM CDT Need for hepatitis C screening test from Last 3 Months or Most Recently Relevant to Health Maintenance Results * (ABNORMAL) CBC W PLT NO DIFF (01/19/2025 12:32 PM CDT) Pathologist [facility] WHITE BLOOD CELL COUNT 6.8 3.8 - 10.8 Thousand/u L [facility] RED BLOOD CELL COUNT 3.72(L) 4.20 - 5.80 Million/uL [facility] HEMOGLOBIN 12.6(L) 13.2 - 17.1 g/dL [facility] HEMATOCRIT 37.4(L) 38.5 - 50.0 % [facility] MCV 100.5(H) 80.0 - 100.0 fL [facility] MCH 33.9(H) 27.0 - 33.0 pg [facility] MCHC 33.7 32.0 - 36.0 g/dL [facility] Comment: For adults, a slight decrease in the calculated MCHC value (in the range of 30 to 32 g/dL) is most likely not clinically significant; however, it should be interpreted with caution in correlation with other red cell parameters and the patient's clinical condition. RDW 11.9 11.0 - 15.0 % [facility] PLATELET COUNT 342 140 - 400 Thousand/u L [facility] MPV 9.4 7.5 - 12.5 fL [facility] Blood BLOOD SPECIMEN / Unknown 01/19/2025 12:32 PM CDT 01/19/2025 12:33 PM CDT Narrative [facility] - 01/20/2025 3:19 AM CDT FASTING:NO FASTING: NO Michelle Mckenzie DO HEMATOLOGY Final Result [employer] [facility] [address] [place] [address], [facility] [address] [place] [address] * RETICULOCYTES (01/19/2025 12:32 PM CDT) [facility] RETICULOCYTE COUNT, AUTOMATED 1.1 % [facility] RETICULOCYTE, ABSOLUTE 41,030 25,000 - 90,000 cells/uL [facility] Blood BLOOD SPECIMEN / Unknown 01/19/2025 12:32 PM CDT 01/20/2025 12:38 PM CDT us Michelle Mckenzie DO HEMATOLOGY Final Result [employer] [facility] [address] [place] [address], [place] [phone] [facility] [address] [facility] [place] [address] * DIFFERENTIAL (01/19/2025 12:32 PM CDT) Pathologist [facility] WHITE BLOOD CELL COUNT 6.7 3.8 - 10.8 Thousand/u L [facility] ABSOLUTE NEUTROPHILS 4,931 1,500 - 7,800 cells/uL [facility] ABSOLUTE LYMPHOCYTES 931 850 - 3,900 cells/uL [facility] ABSOLUTE MONOCYTES 509 200 - 950 cells/uL [facility] ABSOLUTE EOSINOPHILS 248 15 - 500 cells/uL [facility] ABSOLUTE BASOPHILS 80 0 - 200 cells/uL [facility] NEUTROPHILS 73.6 % [facility] LYMPHOCYTES 13.9 % [facility] MONOCYTES 7.6 % [facility] EOSINOPHILS 3.7 % [facility] BASOPHILS 1.2 % [facility] Blood BLOOD SPECIMEN / Unknown 01/19/2025 12:32 PM CDT 01/20/2025 12:38 PM CDT us Michelle Mckenzie DO HEMATOLOGY Final Result [employer] [facility] [address] [facility] [address], [place] [phone] [facility] [address] [facility] [place] [address] * PSA TOTAL (DIAG OR SCREEN) (01/19/2025 12:32 PM CDT) PSA, TOTAL 1.21 < OR = 4.00 ng/mL [facility] Comment: The total PSA value from this assay system is standardized against the WHO standard. The test result will be approximately 20% lower when compared to the equimolar-standardized total PSA (Anai Yovani). Comparison of serial PSA results should be interpreted with this fact in mind. This test was performed using the Siemens chemiluminescent method. Values obtained from different assay methods cannot be used interchangeably. PSA levels, regardless of value, should not be interpreted as absolute evidence of the presence or absence of disease. Blood BLOOD SPECIMEN / Unknown 01/19/2025 12:32 PM CDT 01/19/2025 12:33 PM CDT Narrative [facility] - 01/20/2025 4:04 AM CDT FASTING:NO FASTING: NO Michelle Mckenzie DO CHEMISTRY Final Result [employer] [facility] [address] [place] [address], [facility] [address] [place] [address] * LIPID PANEL (01/19/2025 12:32 PM CDT) CHOLESTEROL, TOTAL 179 <200 mg/dL [facility] HDL CHOLESTEROL 74 > OR = 40 mg/dL [facility] TRIGLYCERIDES 100 <150 mg/dL [facility] LDL-CHOLESTEROL 85 mg/dL (calc) [facility] Comment: Reference range: <100 Desirable range <100 mg/dL for primary prevention; <70 mg/dL for patients with CHD or diabetic patients with > or = 2 CHD risk factors. LDL-C is now calculated using the Pinky calculation, which is a validated novel method providing better accuracy than the Friedewald equation in the estimation of LDL-C. Yossi SS et al. TANISHA. 2013;310(19): 5535-9175 (http://education.[facility].com/faq/LQI327) CHOL/HDLC RATIO 2.4 <5.0 (calc) [facility] NON HDL CHOLESTEROL 105 <130 mg/dL (calc) [facility] Comment: For patients with diabetes plus 1 major ASCVD risk factor, treating to a non-HDL-C goal of <100 mg/dL (LDL-C of <70 mg/dL) is considered a therapeutic option. Blood BLOOD SPECIMEN / Unknown 01/19/2025 12:32 PM CDT 01/19/2025 12:33 PM CDT Narrative [facility] - 01/20/2025 3:25 AM CDT FASTING:NO FASTING: NO Michelle Mckenzie DO CHEMISTRY Final Result [employer] [facility] [address] [place] [address], [facility] [address] * BASIC METABOLIC PANEL (01/19/2025 12:32 PM CDT) [facility] GLUCOSE 101 65 - 139 mg/dL [facility] Comment: Non-fasting reference interval UREA NITROGEN (BUN) 20 7 - 25 mg/dL [facility] CREATININE 1.08 0.70 - 1.35 mg/dL [facility] EGFR 75 > OR = 60 mL/min/1. 73m2 [facility] BUN/CREATININE RATIO SEE NOTE: 6 - 22 (calc) [facility] Comment: Not Reported: BUN and Creatinine are within reference range. SODIUM 139 135 - 146 mmol/L [facility] POTASSIUM 4.9 3.5 - 5.3 mmol/L [facility] CHLORIDE 108 98 - 110 mmol/L [facility] CARBON DIOXIDE 23 20 - 32 mmol/L [facility] ELECTROLYTE BALANCE 8 7 - 17 mmol/L (calc) [facility] CALCIUM 9.5 8.6 - 10.3 mg/dL [facility] Blood BLOOD SPECIMEN / Unknown 01/19/2025 12:32 PM CDT 01/19/2025 12:33 PM CDT Narrative [facility] - 01/20/2025 3:25 AM CDT FASTING:NO FASTING: NO Michelle Mckenzie DO CHEMISTRY Final Result [facility] [address] [place] [address], [facility] [address] [place] [address] * CT CHEST SCREENING LOW DOSE WO CONTRAST (12/24/2024 2:20 PM CDT) Anatomical Region Laterality Modality Computed Tomogra phy Impressions 12/28/2024 10:52 AM CDT 1. Negative for lung cancer screening purposes. LUNG-RADS CATEGORY: 2: Benign. (<1% risk of malignancy) -Perifissural nodule(s): <10 mm -Solid nodule(s): <6 mm on baseline screening; or new nodule <4 mm -Subsolid nodule(s): <6 mm on baseline screening -Ground glass nodule(s): <30 mm; or greater than or equal to 30 mm and unchanged or slowly growing -Category 3 or 4 nodules that are unchanged for greater than or equal to 3 months RADIOLOGIST RECOMMENDATION: (Lungrads 1/2) Continue annual screening, if eligible, with low-dose CT chest in 12 months. Dictated by: Tenzin Arauz MD @12/28/2024 6:30:59 AM CASSY/sheree Narrative 12/28/2024 10:52 AM CDT For Patients: As a result of the Century Cures Act, medical imaging exams and procedure reports are released immediately into your electronic medical record. You may view this report before your referring provider. If you have questions, please contact your health care provider. CT CHEST SCREENING LOW-DOSE WITHOUT CONTRAST, 12/24/2024 INDICATION: Lung cancer screening. History of smoking. High-risk patient with greater than 49-mwvw-ycow smoking history. TECHNIQUE: Low-dose lung cancer screening noncontrast CT chest. Dose reduction techniques were used. COMPARISON: 12/24/2023. FINDINGS: NODULES: 5 mm right perifissural nodule (3/95) most likely an intra pulmonary lymph node is unchanged. No other pulmonary nodules. LUNGS AND PLEURA: Upper lobe emphysema and mild pleural scarring unchanged. Minimal reticular markings posterior sulcus right lower lobe likely due to lung compression. MEDIASTINUM: Normal. CORONARY ARTERY CALCIFICATION: None. LIMITED UPPER ABDOMEN: Bilateral nonobstructing nephrolithiasis. MUSCULOSKELETAL: Normal. us Dave Devi MD CT Final Result * US ABD AORTA SCREENING [[id number]] (01/22/2024 11:14 AM CDT) Anatomical Region Laterality Modality Abdomen, AORTA Ultrasound 01/22/2024 11:2 4 AM CDT Impressions 01/22/2024 11:24 AM CDT Normal ultrasound of the abdominal aorta. No sign of aneurysm. No significant change from the prior study. Dictated by Tenzin Arauz MD @ 01/22/2024 11:24:34 AM (Electronically Signed) Narrative 01/22/2024 11:24 AM CDT For Patients: As a result of the Cures Act, medical imaging exams and procedure reports are released immediately into your electronic medical record. You may view this report before your referring provider. If you have questions, please contact your health care provider. INDICATION: Screening for abdominal aortic aneurysm. TECHNIQUE: Ultrasound aorta with color Doppler analysis. COMPARISON: 08/12/2018 FINDINGS: The proximal abdominal aorta measures 2.4 x 2.5 cm, mid aorta measures 2.1 x 2.1 cm, distal aorta measures 1.7 x 1.4 cm, right common iliac artery measures 1.3 x 1.0 cm, and the left common iliac artery measures 1.0 x 1.2 cm. There are no periaortic abnormalities evident. Procedure Note Vin Arauz MD - 01/22/2024 For Patients: As a result of the 21st Century Cures Act, medical imagingexams and procedure reports are released immediately into your electronicmedical record. You may view this report before your referring provider.If you have questions, please contact your health care provider. INDICATION: Screening for abdominal aortic aneurysm. TECHNIQUE: Ultrasound aorta with color Doppler analysis. COMPARISON: 08/12/2018 FINDINGS: The proximal abdominal aorta measures 2.4 x 2.5 cm, mid aorta measures 2.1x 2.1 cm, distal aorta measures 1.7 x 1.4 cm, right common iliac arterymeasures 1.3 x 1.0 cm, and the left common iliac artery measures 1.0 x 1.2cm. There are no periaortic abnormalities evident. IMPRESSION: Normal ultrasound of the abdominal aorta. No sign of aneurysm. Nosignificant change from the prior study. Dictated by Tenzin Arauz MD @ 01/22/2024 11:24:34 AM (Electronically Signed) us Dave Devi MD Final Result * COLONOSCOPY (03/16/2021 10:31 AM CDT) 03/16/2021 10:3 1 AM CDT Narrative Transcriptions Armando Haynes, - 03/16/2021 11:39 AM CDT Patient Name: Dashawn Knapp Procedure Date: 03/16/2021 Gender: Male Date of : 1955 Admit Type: Ambulatory Procedure: Colonoscopy Proceduralist: Armando Haynes MD [facility] Indications/Pre-Op Diagnosis: High risk colon cancer surveillance:Personal history of colonic polyps, Last colonoscopy5 years ago Medications: Propofol per Anesthesia Procedure Description: The patient had risks, benefits and alternatives explained to andgave informed consent. The patient had a stable cardiopulmonary status and judged an adequate candidate for conscious sedation. The colonoscope was passed through the anus and advanced to thececum, identified by appendiceal orifice and ileocecal valve. Thecolonoscopy was performed without difficulty. The patient tolerated the procedure well. The quality of the bowel preparation was good. The ileocecal valve, appendiceal orifice, and rectum were photographed. Complications: No immediate complications. Estimated Blood Loss & Specimen: Estimated blood loss: none. Specimen collected - Yes and sent to Laboratory Findings: A 3 mm polyp was found in the rectum. The polyp was sessile. Thepolyp was removed with a hot snare. Resection and retrieval were complete. Verification of patient identification for the specimen was done. Estimated blood loss was minimal. Non-bleeding internal hemorrhoids were found during retroflexion. The hemorrhoids were Grade II (internal hemorrhoids that prolapse butreduce spontaneously). Impressions/Post-Op Diagnosis: - One 3 mm polyp in the rectum, removed with a hot snare. Resectedand retrieved. - Non-bleeding internal hemorrhoids. Recommendation: - Discharge patient to home. - Patient has a contact number available for emergencies. The signsand symptoms of potential delayed complications were discussed with the patient. Return to normal activities tomorrow. Written discharge instructions were provided to the patient. - High fiber diet. - Continue present medications. - Await pathology results. - Repeat colonoscopy in 5 years for surveillance. Moderate Sedation: Moderate (conscious) sedation was personally administered by an anesthesia professional. The following parameters were monitored:oxygen saturation, heart rate, blood pressure, and response to care. Armando Haynes MD 03/16/2021 11:39:46 AM This report has been signed electronically. Note Initiated On: 03/16/2021 10:31 AM us Armando Haynes DO PROCEDURE ORD Fi nal Result * ANTI HCV [49728.2] (12/16/2014 8:11 AM CDT) HEPATITIS C ANTIBODY Non-Reacti ve Non-Reacti ve 12/20/2014 2:26 PM CDT [facility] Blood specimen (specimen) BLOOD SPECIMEN / Unknown Add On / Unknown 12/16/2014 8:11 AM CDT 12/20/2014 1:44 PM CDT Narrative [facility] - 12/20/2014 2:26 PM CDT Antibodies to HCV not detected; does not exclude the possibility of exposure to HCV. us Eliu Montano MD SEND OUTS Final Result [facility] [address] [place] [address], [place] from Last 3 Months or Most Recently Relevant to Health Maintenance Insurance [employer] BLUE MR PB ONLY MEDICARE PART B HB ONLY [employer] BLUE HB ONLY MEDICARE PART A HB ONLY Advance Directives * Full Code (Latest Code Status on File) Date Activated Date Inactivated Comments 03/16/2021 9:11 AM 03/16/2021 3:46 PM Question Answer Comments Code Status Discussion: Discussed * Full Code Date Activated Date Inactivated Comments 01/17/2021 1:13 PM 01/19/2021 2:32 AM Question Answer Comments Code Status Discussion: Not Discussed * Full Code Date Activated Date Inactivated Comments 03/28/2015 12:18 PM 03/29/2015 5:42 PM * Full Code Date Activated Date Inactivated Comments 03/28/2015 6:16 AM 03/28/2015 12:18 PM * Full Code Date Activated Date Inactivated Comments 02/25/2015 10:20 AM 02/26/2015 2:27 AM Care Teams Communications Lead Relationship Specialty Start Date End Date Michelle Mckenzie DO [address] [facility] [place] [id number] PCP - General Family Practice 01/19/25
--- NOTE | 2025-02-13 13:23 | ED.BACK ---
HPI - Back Pain/Injury General Date Seen: 02/13/25 Chief Complaint: Back Injury/Pain Stated Complaint: back pain Time Seen by Provider: 02/13/25 11:46 Source: patient, family, RN notes reviewed and old records reviewed Mode of arrival: ambulatory Limitations: no limitations History of Present Illness HPI Narrative: Patient is a 69-year-old gentleman who presents here with right-sided and lower back pain. He has had this on off for the last couple weeks, was actually improving but today as more pain he says. There is no numbness or tingling or weakness that goes down the legs associated with this. He just has a hard time getting out of bed rolling over her finding a comfortable position. He denies any abdominal pain with this. He does have a history of renal stones. His says this feels really different than that. He has been taking ibuprofen 800 mg 3 times a day and that does help the discomfort. No history of hematuria fevers chills or sweats, he says he was screen for a AAA a probably 5-6 years ago as there is a family history of this. Presents here with his , Past history of back pain on off, but never quite this bad he does have bouts at 2 to 3 times a year. They are currently trying to retire from a [employer] business. And selling it to a family member, they have a hobby farm at home. He has no history of malignancy, falls trauma or other issues. No bowel or bladder issues, any or weakness in the lower extremities, non-work related Related Data Home Medications ?Medication ?Instructions ?Recorded ?Confirmed albuterol sulfate 90 mcg/actuation 2 puff inhalation QID PRN dyspnea 11/05/22 02/13/25 aerosol inhaler atorvastatin 10 mg tablet 10 mg PO DAILY 11/05/22 02/13/25 bupropion HCl 150 mg tablet,12 hr 150 mg PO BID 11/05/22 02/13/25 sustained-release lisinopril 20 mg tablet 20 mg PO DAILY 11/05/22 02/13/25 fluticasone propionate 50 1 spray intranasal BID 12/07/22 06/10/23 mcg/actuation nasal spray,suspension (24 Hour Allergy Relief) multivitamin (Daily Multi-Vitamin 1 tab PO DAILY 12/07/22 06/10/23 tablet) Previous Rx's ?Medication ?Instructions ?Recorded methylprednisolone 4 mg tablets in See Rx Instructions PO .COMPLEX 02/13/25 a dose pack (Medrol (Mateo)) #21 ea Allergies Allergy/AdvReac Type Severity Reaction Status Date / Time hayfever Allergy Uncoded 06/10/23 10:33 Review of Systems Status of ROS: Reports: 10 or more systems reviewed and unremarkable except as noted in History and [facility] Hyperlipidemia ?E78.5 - Hyperlipidemia, unspecified (ICD-10) Anxiety and depression ?F41.9 - Anxiety disorder, unspecified (ICD-10) ?F32.A - Depression, unspecified (ICD-10) History of nephrolithotomy with removal of calculi ?Z98.890 - Other specified postprocedural states (ICD-10) ?Z87.442 - Personal history of urinary calculi (ICD-10) Tobacco dependence ?F17.200 - Nicotine dependence, unspecified, uncomplicated (ICD-10) Asthma with COPD ?J44.9 - Chronic obstructive pulmonary disease, unspecified (ICD-10) Closed right ankle fracture ?S82.891A - Other fracture of right lower leg, initial encounter for closed fracture (ICD-10) Closed left ankle fracture ?S82.892A - Other fracture of left lower leg, initial encounter for closed fracture (ICD-10) Kidney stones ?N20.0 - Calculus of kidney (ICD-10) High blood pressure ?I10 - Essential (primary) hypertension (ICD-10) Surgical History History of total left hip arthroplasty (12/11/22) ?Z96.642 - Presence of left artificial hip joint (ICD-10) History of ankle surgery ?Z98.890 - Other specified postprocedural states (ICD-10) History of cystoscopy ?Z98.890 - Other specified postprocedural states (ICD-10) Status post colonoscopy with polypectomy ?Z98.890 - Other specified postprocedural states (ICD-10) Family History Father Aortic aneurysm Mother Stroke Brother Leukemia Social History Highest level of school completed/degree received: Bachelor's degree Smoking Status: Former smoker What tobacco products do you use: cigarettes Smoking packs per day: 1.5 Smoking cigarettes per day: 30.0 Years smoked: 35 Smoking pack-years: 52.50 Smoking quit date/years: <= 15 years ago Do you use any of these nicotine containing products: None Second hand tobacco smoke exposure: No How often do you have a drink containing alcohol: 2-4 times a month Alcohol type: wine How many standard drinks containing alcohol do you have on a typical day: 1 or 2 How often do you have six or more drinks on one occasion: Never AUDIT-C Alcohol total score: 2 Non-prescribed substance use: denies use Caffeine: Yes (coffee, 3-4 cups/day) service: No Exam Narrative: Exam Narrative: On examination in the room he is in some mild distress, when he moves around, he is comfortable laying on his back or side. He is able sit up for me under his own power, there is definitely spasm in his back, right-sided. With a little bit of what looks like reactive scoliosis no tenderness to palpation or percussion or palpation no masses are noted. He is room localizes pain to the right side of his posterior iliac crest. No buttock discomfort, forward flexion is only 30? uses hands to walk himself back up, side flexion and rotation are also somewhat limited. SLR is are negative to 90? bilaterally his reflexes are 2/4 his ankles and also knees bilaterally his EHLs, great toe flexors, knee flexors and extensors, ankle dorsiflexors plantar flexors and hip flexors are graded 5/5 power bilaterally. Sensations normal over his lower extremities he has normal muscle bulk normal pulses, Ultrasound is done, with the primary indication of looking for in ruling out a AAA, I do not see any evidence of dilatation of his aorta, some overlying gas, films were captured with the ultrasound machine, all the way down to the bifurcation, his kidneys bilaterally look like there is some stones in his kidneys, but I do not see any evidence of hydronephrosis bilaterally. Const: Vital Signs, click to edit/add: Vital Signs - 24 hr 02/13/25 11:47 Temperature 97.3 F L Pulse Rate [Pulse Oximeter] 84 Respiratory Rate 18 Blood Pressure [Ri ght Upper Arm] 139/84 Pulse Oximetry 96 Oxygen Delivery Me thod Room Air Course Course ED Course: I discussed with the patient I think this is a combination of both muscle spasm along with the radicular finding. I think a Medrol Dosepak will help him I will have him stop the ibuprofen I do not think this is related to aortic aneurysmal changes or renal colic given what I see here today on both examination in findings of the ultrasound, I do not think this is infectious etiology I think it would be reasonable to treat him expectantly with the Tylenol Medrol, him follow up with primary care and consider PT back here if worsening or see me in my back clinic. Vital Signs Vital signs: Initial Vital Signs Temperature 97.3 F L 02/13/25 11:47 Temperature Source Temporal Artery Scan 02/13/25 11:47 Pulse Rate 84 02/13/25 11:47 Respiratory Rate 18 02/13/25 11:47 Blood Pressure 139/84 02/13/25 11:47 Blood Pressure Mean 102 02/13/25 11:47 Pulse Oximetry 96 02/13/25 11:47 Oxygen Delivery Method Room Air 02/13/25 11:47 Vital Signs Temperature 97.3 F L 02/13/25 11:47 Pulse Rate 84 02/13/25 11:47 Respiratory Rate 18 02/13/25 11:47 Blood Pressure 139/84 02/13/25 11:47 Pulse Oximetry 96 02/13/25 11:47 Oxygen Delivery Method Room Air 02/13/25 11:47 Temperature 97.3 F L 02/13/25 11:47 Pulse Rate 84 02/13/25 11:47 Respiratory Rate 18 02/13/25 11:47 Blood Pressure 139/84 02/13/25 11:47 Pulse Oximetry 96 02/13/25 11:47 Oxygen Delivery Method Room Air 02/13/25 11:47 MDM - Back Pain/Injury MDM Narrative Medical decision making narrative: Life-threatening differential diagnosis considered include: Cauda equina an epidural abscess, other differential diagnosis considered includes sprain, contusion, nerve root entrapment, radiculopathy, muscle spasm, urolithiasis, lumbar fracture, pyelonephritis, appendicitis, biliary colic, as well as other etiologies. The patient denies saddle anesthesia bowel or bladder incontinence or lower extremity weakness, recent weight loss, or history of malignancy. Medical Records Attestation: I reviewed the patient's medical records. Imaging Data Lumbar films: Radiologist's impression: [place] [address] Diagnostic Imaging Report Patient: Dashawn Knapp MR#: [id number] : 1955 Acct:[id number] Loc: ED Service Date: 02/13/[address]: Ordering Physician: Pablo Finch M.D. Date of Service: 02/13/25 Procedure(s): XR lumbar spine 2-3V Accession Number(s): [id number] cc: Michelle Mckenzie D.O.; Pablo Finch M.D.~ For Patients: As a result of the Cures Act, medical imaging exams and procedure reports are released immediately into your electronic medical record. You may view this report before your referring provider. If you have questions, please contact your health care provider. INDICATION: Back pain TECHNIQUE: 2-view lumbar spine. COMPARISON: none FINDINGS: Disc space narrowing and spurring L3 through S1. No fracture. No spondylolisthesis. Possible renal stones. IMPRESSION: No fracture. Possible nephrolithiasis. Dictated by Edil Darling MD @ 02/13/2025 1:18:36 PM (Electronically Signed) I reviewed the x-rays there is definite narrowing severe at L5-S1 with just a trace of retrolisthesis. Mild narrowing throughout the lumbar spine arthritic changes of the facet joints are maximal at L5-S1. Total hip arthroplasty is noted. Discharge Plan Discharge Clinical Impression: Strain of lumbar region, Lumbar radiculopathy Patient Disposition: Home w/ Parent or Adult Condition: Stable Instructions: Low Back Strain (ED), Acute Low Back Pain (ED), Lumbar Radiculopathy (ED), Back Pain (ED), Lower Back Exercises (ED), Core Strengthening Exercises (ED), Cold Compress or Soak (ED) Additional Instructions: Home rest use of ice, walking okay, use the Medrol Dosepak as directed, I would suggest follow-up with primary care to get a referral for physical therapy, return if increasing pain fevers chills weakness in her lower back, but again I think this is a combo problem associated with both muscle spasm and likely little bit of disc stuff. No use of ibuprofen, while your on the Medrol, and I would try to limit the use of this, acetaminophen 1 g p.o. t.i.d.. Activity Level: Light activity Prescriptions: New methylprednisolone [Medrol (Mateo)] 4 mg tablets,dose pack See Rx Instructions .ROUTE .COMPLEX Qty: 21 0RF Rx Instructions: for 6 days No Action lisinopril 20 mg tablet 20 mg PO DAILY bupropion HCl 150 mg tablet sustained-release 12 hr 150 mg PO BID atorvastatin 10 mg tablet 10 mg PO DAILY albuterol sulfate 90 mcg/actuation HFA aerosol inhaler 2 puff inhalation QID PRN (Reason: dyspnea) multivitamin [Daily Multi-Vitamin] Tablet 1 tab PO DAILY fluticasone propionate [24 Hour Allergy Relief] 50 mcg/actuation spray,suspension 1 spray intranasal BID Rx Instructions: administer into each nostril Follow Up/Referrals: Michelle Mckenzie DO [Primary Care Provider, Family Practice] Stand Alone Forms: [facility] Info Instructions
== END 2025-02-13 13:25 | disposition home or self-care (01) ==
PROVIDERS: Emergency Provider Family Medicine; PCP Student in an Organized Health Care Education/Training Program
DX: S39.012A Strain of muscle, fascia and tendon of lower back, initial encounter (principal)
CPT/HCPCS: 72100; 99283; 99284